=== PATIENT | female | born 1945 ===

== ENCOUNTER 2018-07-10 15:44 | Inpatient (IN) | payer MEDICARE ==
[~2018-07-10] VITALS: Ht 152.4 cm; Wt 70.3 kg
[2018-07-10] MEDS ORDERED: DOCUSATE SODIUM 283 MG/5 ML MINI-ENEMA PR PRN (16:45)
[2018-07-10] MEDS ORDERED: ACETAMINOPHEN 325 MG TABLET PO PRN ×2 (16:45→19:45)
[2018-07-10 19:36] VITALS: BP 150/90
[2018-07-10 20:51] VITALS: BP 144/58
[2018-07-10] MEDS: SENNA 187 MG TABLET PO SCH (20:54)
[2018-07-10] MEDS: DOCUSATE SODIUM 100 MG CAPSULE PO SCH (20:54)
[2018-07-10] MEDS: METOPROLOL TARTRATE 50 MG TABLET PO SCH (20:55)
[2018-07-11 00:11] VITALS: BP 150/53
[2018-07-11 02:12] LABS: APPEARANCE,URINE CLOUDY (CLEAR); GLUCOSE, URINE (UA) NEGATIVE (NEGATIVE); KETONES,URINE TRACE mg/dL (NEGATIVE); LEUKOCYTE ESTERASE ,URINE SMALL (NEGATIVE); NITRATE,URINE NEGATIVE (NEGATIVE); OCCULT BLOOD,URINE NEGATIVE (NEGATIVE); PROTEIN,URINE SEE CONFIRM (NEGATIVE)
[2018-07-11 02:13] LABS: BILIRUBIN,URINE PRELIM. POSITIVE (NEGATIVE)
[2018-07-11 02:20] LABS: BACTERIA,URINE Moderate /HPF (None Seen); RBC,URINE 0-2 /HPF (0-2); SQUAMOUS EPITHELIAL CELL,UR Many /LPF (None Seen)
[2018-07-11 02:21] LABS: SULFOSALICYLIC ACID,URINE 3+ (Negative)
[2018-07-11 06:43] LABS: BASOPHILS % (AUTO) 0.4 % (0.0-2.0); EOSINOPHILS % (AUTO) 2.6 % (1.0-6.0); HEMATOCRIT 28.9 % (36-46); HEMOGLOBIN 9.5 g/dL (12.0-16.0); LYMPHOCYTES # (AUTO) 1.3 K/uL (1.0-4.8); LYMPHOCYTES % (AUTO) 24.9 % (22.0-44.0); MEAN CORPUSCULAR HEMOGLOBIN 25.7 pg (26.0-34.0); MEAN CORPUSCULAR HGB CONC 32.7 G/dL (31.0-37.0); MEAN CORPUSCULAR VOLUME 79 fL (80-100); MONOCYTES # (AUTO) 0.4 K/uL (0.1-1.0); MONOCYTES % (AUTO) 7.5 % (2.0-9.0); NEUTROPHILS # (AUTO) 3.4 K/uL (1.8-7.7); NEUTROPHILS % (AUTO) 64.6 % (40.0-70.0); PLATELET COUNT (AUTO) 163 K/uL (150-450); RED BLOOD CELL COUNT(AUTO) 3.68 MIL/uL (4.00-5.20); RED CELL DISTRIBUTION WIDTH 20.4 % (11.5-14.5)
[2018-07-11 07:00] LABS: ALBUMIN 2.5 g/dL (3.4-5.0); BILIRUBIN,TOTAL 0.4 mg/dL (0.1-1.0); CALCIUM, TOTAL 8.6 mg/dL (8.8-10.5); CREATININE 1.49 mg/dL (0.60-1.30); POTASSIUM 3.8 mmol/L (3.5-5.1); TOTAL PROTEIN, SERUM 6.8 g/dL (6.4-8.2)
[2018-07-11 07:23] VITALS: BP 136/54
[2018-07-11] MEDS: METOPROLOL TARTRATE 50 MG TABLET PO SCH ×2 (08:42→20:13)
[2018-07-11] MEDS: ASPIRIN 81 MG CHEWABLE TABLET PO SCH (08:42)
[2018-07-11] MEDS: AmLODIPine BESYLATE 10 MG TABLET PO SCH (08:42)
[2018-07-11] MEDS: HYDROCHLOROTHIAZIDE 25 MG TABLET PO SCH (08:42)
[2018-07-11] MEDS: CHOLECALCIFEROL (VIT D3) 5,000 UNITS CAPSULE PO SCH (08:42)
[2018-07-11] MEDS: CLOPIDOGREL BISULFATE 75 MG TABLET PO SCH (08:42)
[2018-07-11] MEDS: DOCUSATE SODIUM 100 MG CAPSULE PO SCH ×2 (08:48→20:14)
[2018-07-11] MEDS ORDERED: ATORVASTATIN CALCIUM 40 MG TABLET PO SCH ×2 (09:00→21:00)
[2018-07-11 15:35] VITALS: BP 100/63
[2018-07-11 20:11] VITALS: BP 141/67
[2018-07-11] MEDS: SULFAMETHOX/TRIMETH DS 800-160 MG/TABLET PO SCH (20:13)
[2018-07-11] MEDS: SENNA 187 MG TABLET PO SCH (20:14)
[2018-07-12 02:00] VITALS: BP 134/58
[2018-07-12] MEDS ORDERED: PANTOPRAZOLE SODIUM 40 MG DR TABLET PO SCH (07:00)
[2018-07-12] MEDS: DOCUSATE SODIUM 100 MG CAPSULE PO SCH (09:00)
[2018-07-12 09:14] VITALS: BP 138/59
[2018-07-12] MEDS: SULFAMETHOX/TRIMETH DS 800-160 MG/TABLET PO SCH ×2 (09:18→20:21)
[2018-07-12] MEDS: HYDROCHLOROTHIAZIDE 25 MG TABLET PO SCH (09:18)
[2018-07-12] MEDS: AmLODIPine BESYLATE 10 MG TABLET PO SCH (09:18)
[2018-07-12] MEDS: CLOPIDOGREL BISULFATE 75 MG TABLET PO SCH (09:18)
[2018-07-12] MEDS: METOPROLOL TARTRATE 50 MG TABLET PO SCH ×2 (09:18→20:21)
[2018-07-12] MEDS: ASPIRIN 81 MG CHEWABLE TABLET PO SCH (09:19)
[2018-07-12] MEDS: CHOLECALCIFEROL (VIT D3) 5,000 UNITS CAPSULE PO SCH (09:28)
[2018-07-12] MEDS ORDERED: DOCUSATE SODIUM 100 MG CAPSULE PO PRN (11:30)
[2018-07-12] MEDS ORDERED: SENNA 187 MG TABLET PO PRN (11:30)
[2018-07-12 15:28] VITALS: BP 130/69
[2018-07-12] MEDS: ROSUVASTATIN CALCIUM 20 MG TABLET PO SCH (20:17)
[2018-07-12 20:20] VITALS: BP 138/53
[2018-07-13 00:02] VITALS: BP 128/57
[2018-07-13 07:27] VITALS: BP 131/64
[2018-07-13] MEDS: METOPROLOL TARTRATE 50 MG TABLET PO SCH ×2 (08:17→20:52)
[2018-07-13] MEDS: AmLODIPine BESYLATE 10 MG TABLET PO SCH (08:17)
[2018-07-13] MEDS: CHOLECALCIFEROL (VIT D3) 5,000 UNITS CAPSULE PO SCH (08:17)
[2018-07-13] MEDS: SULFAMETHOX/TRIMETH DS 800-160 MG/TABLET PO SCH ×2 (08:18→20:42)
[2018-07-13] MEDS: HYDROCHLOROTHIAZIDE 25 MG TABLET PO SCH (08:18)
[2018-07-13] MEDS: CLOPIDOGREL BISULFATE 75 MG TABLET PO SCH (08:18)
[2018-07-13] MEDS: ASPIRIN 81 MG CHEWABLE TABLET PO SCH (08:18)
[2018-07-13 15:16] VITALS: BP 145/58
[2018-07-13] MEDS: ROSUVASTATIN CALCIUM 20 MG TABLET PO SCH (20:52)
[2018-07-13 23:23] VITALS: BP 146/88
[2018-07-14 07:27] VITALS: BP 121/45
[2018-07-14] MEDS: ASPIRIN 81 MG CHEWABLE TABLET PO SCH (08:21)
[2018-07-14] MEDS: CLOPIDOGREL BISULFATE 75 MG TABLET PO SCH (08:21)
[2018-07-14] MEDS: CHOLECALCIFEROL (VIT D3) 5,000 UNITS CAPSULE PO SCH (08:21)
[2018-07-14] MEDS: AmLODIPine BESYLATE 10 MG TABLET PO SCH (08:21)
[2018-07-14] MEDS: SULFAMETHOX/TRIMETH DS 800-160 MG/TABLET PO SCH ×2 (08:21→20:40)
[2018-07-14] MEDS: METOPROLOL TARTRATE 50 MG TABLET PO SCH ×2 (08:22→20:41)
[2018-07-14] MEDS: HYDROCHLOROTHIAZIDE 25 MG TABLET PO SCH (08:22)
[2018-07-14 15:08] VITALS: BP 125/46
[2018-07-14 20:39] VITALS: BP 146/56
[2018-07-14] MEDS: ROSUVASTATIN CALCIUM 20 MG TABLET PO SCH (20:41)
[2018-07-15 01:13] VITALS: BP 124/58
[2018-07-15] MEDS ORDERED: CLOP75 PO (07:03)
[2018-07-15] MEDS ORDERED: HYDR25TA PO (07:03)
[2018-07-15] MEDS ORDERED: ROSU20 PO (07:03)
[2018-07-15] MEDS ORDERED: ASPI-1182 PO (07:03)
[2018-07-15] MEDS ORDERED: CHOL50004 PO (07:03)
[2018-07-15] MEDS ORDERED: AMLO-512 PO (07:03)
[2018-07-15] MEDS ORDERED: METO50 PO (07:03)
[2018-07-15 07:35] VITALS: BP 136/56
[2018-07-15] MEDS: ASPIRIN 81 MG CHEWABLE TABLET PO SCH (08:09)
[2018-07-15] MEDS: SULFAMETHOX/TRIMETH DS 800-160 MG/TABLET PO SCH ×2 (08:09→21:08)
[2018-07-15] MEDS: CHOLECALCIFEROL (VIT D3) 5,000 UNITS CAPSULE PO SCH (08:09)
[2018-07-15] MEDS: CLOPIDOGREL BISULFATE 75 MG TABLET PO SCH (08:09)
[2018-07-15] MEDS: HYDROCHLOROTHIAZIDE 25 MG TABLET PO SCH (08:10)
[2018-07-15] MEDS: AmLODIPine BESYLATE 10 MG TABLET PO SCH (08:10)
[2018-07-15] MEDS: METOPROLOL TARTRATE 50 MG TABLET PO SCH ×2 (08:10→21:00)
[2018-07-15 15:22] VITALS: BP 139/63
[2018-07-15] MEDS: ROSUVASTATIN CALCIUM 20 MG TABLET PO SCH (21:00)
[2018-07-15 21:06] VITALS: BP 145/57
[2018-07-15 23:48] VITALS: BP 132/59
[2018-07-16 07:50] VITALS: BP 139/57
[2018-07-16] MEDS: SULFAMETHOX/TRIMETH DS 800-160 MG/TABLET PO SCH ×2 (09:11→21:18)
[2018-07-16] MEDS: METOPROLOL TARTRATE 50 MG TABLET PO SCH ×2 (09:11→21:00)
[2018-07-16] MEDS: AmLODIPine BESYLATE 10 MG TABLET PO SCH (09:11)
[2018-07-16] MEDS: ASPIRIN 81 MG CHEWABLE TABLET PO SCH (09:11)
[2018-07-16] MEDS: CLOPIDOGREL BISULFATE 75 MG TABLET PO SCH (09:12)
[2018-07-16] MEDS: HYDROCHLOROTHIAZIDE 25 MG TABLET PO SCH (09:12)
[2018-07-16] MEDS: CHOLECALCIFEROL (VIT D3) 5,000 UNITS CAPSULE PO SCH (09:12)
[2018-07-16 15:30] VITALS: BP 129/51
[2018-07-16 20:44] VITALS: BP_SYST 15; BP_SYST 150; BP_DIAS 50
[2018-07-16] MEDS: ROSUVASTATIN CALCIUM 20 MG TABLET PO SCH (21:00)
[2018-07-16 21:14] VITALS: BP 150/55
[2018-07-17] VITALS: BP 128/47
[2018-07-17 05:07] VITALS: BP 137/54
[2018-07-17 07:30] VITALS: BP 130/55
[2018-07-17] MEDS: METOPROLOL TARTRATE 50 MG TABLET PO SCH ×2 (08:51→20:39)
[2018-07-17] MEDS: ASPIRIN 81 MG CHEWABLE TABLET PO SCH (08:51)
[2018-07-17] MEDS: CLOPIDOGREL BISULFATE 75 MG TABLET PO SCH (08:51)
[2018-07-17] MEDS: AmLODIPine BESYLATE 10 MG TABLET PO SCH (08:51)
[2018-07-17] MEDS: HYDROCHLOROTHIAZIDE 25 MG TABLET PO SCH (08:51)
[2018-07-17] MEDS: SULFAMETHOX/TRIMETH DS 800-160 MG/TABLET PO SCH ×2 (08:51→20:33)
[2018-07-17] MEDS: CHOLECALCIFEROL (VIT D3) 5,000 UNITS CAPSULE PO SCH (08:51)
[2018-07-17 15:45] VITALS: BP 140/53
[2018-07-17 20:31] VITALS: BP 136/53
[2018-07-17] MEDS: ROSUVASTATIN CALCIUM 20 MG TABLET PO SCH (20:39)
[2018-07-18 02:00] VITALS: BP 139/60
[2018-07-18 07:20] VITALS: BP 143/73
[2018-07-18] MEDS: HYDROCHLOROTHIAZIDE 25 MG TABLET PO SCH (08:44)
[2018-07-18] MEDS: AmLODIPine BESYLATE 10 MG TABLET PO SCH (08:45)
[2018-07-18] MEDS: CHOLECALCIFEROL (VIT D3) 5,000 UNITS CAPSULE PO SCH (08:45)
[2018-07-18] MEDS: CLOPIDOGREL BISULFATE 75 MG TABLET PO SCH (08:45)
[2018-07-18] MEDS: METOPROLOL TARTRATE 50 MG TABLET PO SCH ×2 (08:45→20:46)
[2018-07-18] MEDS: SULFAMETHOX/TRIMETH DS 800-160 MG/TABLET PO SCH (08:46)
[2018-07-18] MEDS: ASPIRIN 81 MG CHEWABLE TABLET PO SCH (08:46)
[2018-07-18 15:45] VITALS: BP 114/54
[2018-07-18 20:45] VITALS: BP 133/56
[2018-07-18] MEDS: ROSUVASTATIN CALCIUM 20 MG TABLET PO SCH (20:46)
[2018-07-19 00:24] VITALS: BP 117/47
[2018-07-19 08:30] VITALS: BP 130/48
[2018-07-19] MEDS: HYDROCHLOROTHIAZIDE 25 MG TABLET PO SCH (08:40)
[2018-07-19] MEDS: AmLODIPine BESYLATE 10 MG TABLET PO SCH (08:40)
[2018-07-19] MEDS: CHOLECALCIFEROL (VIT D3) 5,000 UNITS CAPSULE PO SCH (08:40)
[2018-07-19] MEDS: METOPROLOL TARTRATE 50 MG TABLET PO SCH ×2 (08:40→20:45)
[2018-07-19] MEDS: CLOPIDOGREL BISULFATE 75 MG TABLET PO SCH (08:40)
[2018-07-19] MEDS: ASPIRIN 81 MG CHEWABLE TABLET PO SCH (08:41)
[2018-07-19 15:31] VITALS: BP 130/57
[2018-07-19] MEDS: ROSUVASTATIN CALCIUM 20 MG TABLET PO SCH (20:45)
[2018-07-20 00:47] VITALS: BP 132/56
[2018-07-20 07:10] VITALS: BP 131/52
[2018-07-20] MEDS: ASPIRIN 81 MG CHEWABLE TABLET PO SCH (08:30)
[2018-07-20] MEDS: AmLODIPine BESYLATE 10 MG TABLET PO SCH (08:30)
[2018-07-20] MEDS: METOPROLOL TARTRATE 50 MG TABLET PO SCH ×2 (08:30→20:45)
[2018-07-20] MEDS: CHOLECALCIFEROL (VIT D3) 5,000 UNITS CAPSULE PO SCH (08:30)
[2018-07-20] MEDS: CLOPIDOGREL BISULFATE 75 MG TABLET PO SCH (08:30)
[2018-07-20] MEDS: HYDROCHLOROTHIAZIDE 25 MG TABLET PO SCH (08:30)
[2018-07-20 08:34] VITALS: BP 144/52
[2018-07-20 15:15] VITALS: BP 140/62
[2018-07-20 20:42] VITALS: BP 141/57
[2018-07-20] MEDS: ROSUVASTATIN CALCIUM 20 MG TABLET PO SCH (20:46)
[2018-07-20 23:23] VITALS: BP 126/53
[2018-07-21 07:45] VITALS: BP 124/50
[2018-07-21] MEDS: HYDROCHLOROTHIAZIDE 25 MG TABLET PO SCH (08:49)
[2018-07-21] MEDS: METOPROLOL TARTRATE 50 MG TABLET PO SCH ×2 (08:49→20:46)
[2018-07-21] MEDS: CHOLECALCIFEROL (VIT D3) 5,000 UNITS CAPSULE PO SCH (08:49)
[2018-07-21] MEDS: ASPIRIN 81 MG CHEWABLE TABLET PO SCH (08:49)
[2018-07-21] MEDS: AmLODIPine BESYLATE 10 MG TABLET PO SCH (08:49)
[2018-07-21] MEDS: CLOPIDOGREL BISULFATE 75 MG TABLET PO SCH (08:49)
[2018-07-21 16:08] VITALS: BP 152/56
[2018-07-21] MEDS: ROSUVASTATIN CALCIUM 20 MG TABLET PO SCH (20:43)
[2018-07-21 20:45] VITALS: BP 143/79
[2018-07-22 05:00] VITALS: BP 132/62
[2018-07-22 07:30] VITALS: BP 129/57
[2018-07-22] MEDS: CHOLECALCIFEROL (VIT D3) 5,000 UNITS CAPSULE PO SCH (08:23)
[2018-07-22] MEDS: HYDROCHLOROTHIAZIDE 25 MG TABLET PO SCH (08:23)
[2018-07-22] MEDS: CLOPIDOGREL BISULFATE 75 MG TABLET PO SCH (08:23)
[2018-07-22] MEDS: AmLODIPine BESYLATE 10 MG TABLET PO SCH (08:24)
[2018-07-22] MEDS: METOPROLOL TARTRATE 50 MG TABLET PO SCH ×2 (08:24→21:00)
[2018-07-22] MEDS: ASPIRIN 81 MG CHEWABLE TABLET PO SCH (08:24)
[2018-07-22] MEDS: ROSUVASTATIN CALCIUM 20 MG TABLET PO SCH (21:00)
[2018-07-23] MEDS: CLOPIDOGREL BISULFATE 75 MG TABLET PO SCH (09:00)
[2018-07-23] MEDS: ASPIRIN 81 MG CHEWABLE TABLET PO SCH (09:00)
[2018-07-23] MEDS: METOPROLOL TARTRATE 50 MG TABLET PO SCH ×3 (09:00→21:20)
[2018-07-23] MEDS: CHOLECALCIFEROL (VIT D3) 5,000 UNITS CAPSULE PO SCH (09:00)
[2018-07-23] MEDS: AmLODIPine BESYLATE 10 MG TABLET PO SCH (09:00)
[2018-07-23] MEDS: HYDROCHLOROTHIAZIDE 25 MG TABLET PO SCH (09:00)
[2018-07-23 19:54] VITALS: BP 127/68
[2018-07-23] MEDS: ROSUVASTATIN CALCIUM 20 MG TABLET PO SCH (20:55)
[2018-07-24 00:45] VITALS: BP 140/60
[2018-07-24 07:44] VITALS: BP 114/62
[2018-07-24] MEDS: AmLODIPine BESYLATE 10 MG TABLET PO SCH (08:31)
[2018-07-24] MEDS: CLOPIDOGREL BISULFATE 75 MG TABLET PO SCH (08:31)
[2018-07-24] MEDS: ASPIRIN 81 MG CHEWABLE TABLET PO SCH (08:31)
[2018-07-24] MEDS: METOPROLOL TARTRATE 50 MG TABLET PO SCH ×2 (08:31→20:40)
[2018-07-24] MEDS: CHOLECALCIFEROL (VIT D3) 5,000 UNITS CAPSULE PO SCH (08:34)
[2018-07-24] MEDS: HYDROCHLOROTHIAZIDE 25 MG TABLET PO SCH (08:34)
[2018-07-24 15:10] VITALS: BP 128/57
[2018-07-24 20:38] VITALS: BP 128/62
[2018-07-24] MEDS: ROSUVASTATIN CALCIUM 20 MG TABLET PO SCH (21:00)
[2018-07-24 21:12] LABS: APPEARANCE,URINE CLOUDY (CLEAR); BILIRUBIN,URINE NEGATIVE (NEGATIVE); GLUCOSE, URINE (UA) NEGATIVE (NEGATIVE); KETONES,URINE TRACE mg/dL (NEGATIVE); LEUKOCYTE ESTERASE ,URINE SMALL (NEGATIVE); NITRATE,URINE NEGATIVE (NEGATIVE); OCCULT BLOOD,URINE NEGATIVE (NEGATIVE); PROTEIN,URINE SEE CONFIRM (NEGATIVE); UROBILINOGEN,URINE 0.2 mg/dL (<=1.0)
[2018-07-24 21:31] LABS: RBC,URINE 0-2 /HPF (0-2); SULFOSALICYLIC ACID,URINE 1+ (Negative)
[2018-07-24 21:32] LABS: BACTERIA,URINE Few /HPF (None Seen); SQUAMOUS EPITHELIAL CELL,UR Few /LPF (None Seen)
[2018-07-25 01:56] VITALS: BP 119/52
[2018-07-25 07:35] VITALS: BP 139/54
[2018-07-25] MEDS: CHOLECALCIFEROL (VIT D3) 5,000 UNITS CAPSULE PO SCH (08:05)
[2018-07-25] MEDS: METOPROLOL TARTRATE 50 MG TABLET PO SCH ×2 (08:06→20:19)
[2018-07-25] MEDS: AmLODIPine BESYLATE 10 MG TABLET PO SCH (08:07)
[2018-07-25] MEDS: ASPIRIN 81 MG CHEWABLE TABLET PO SCH (08:08)
[2018-07-25] MEDS: HYDROCHLOROTHIAZIDE 25 MG TABLET PO SCH (08:08)
[2018-07-25] MEDS: CLOPIDOGREL BISULFATE 75 MG TABLET PO SCH (08:08)
[2018-07-25 15:55] VITALS: BP 124/61
[2018-07-25 20:07] VITALS: BP 142/63
[2018-07-25] MEDS: ROSUVASTATIN CALCIUM 20 MG TABLET PO SCH (20:19)
[2018-07-26 05:34] VITALS: BP 114/48
[2018-07-26] MEDS: CLOPIDOGREL BISULFATE 75 MG TABLET PO SCH (08:11)
[2018-07-26] MEDS: ASPIRIN 81 MG CHEWABLE TABLET PO SCH (08:11)
[2018-07-26] MEDS: HYDROCHLOROTHIAZIDE 25 MG TABLET PO SCH (08:11)
[2018-07-26] MEDS: AmLODIPine BESYLATE 10 MG TABLET PO SCH (08:11)
[2018-07-26] MEDS: METOPROLOL TARTRATE 50 MG TABLET PO SCH ×2 (08:11→20:01)
[2018-07-26] MEDS: CHOLECALCIFEROL (VIT D3) 5,000 UNITS CAPSULE PO SCH (08:11)
[2018-07-26 08:16] VITALS: BP 140/82
[2018-07-26 15:50] VITALS: BP 135/57
[2018-07-26 20:02] VITALS: BP 129/67
[2018-07-26] MEDS: ROSUVASTATIN CALCIUM 20 MG TABLET PO SCH (20:02)
[2018-07-26 23:56] VITALS: BP 115/48
[2018-07-27 07:51] VITALS: BP 130/54
[2018-07-27] MEDS: CLOPIDOGREL BISULFATE 75 MG TABLET PO SCH (08:03)
[2018-07-27] MEDS: METOPROLOL TARTRATE 50 MG TABLET PO SCH ×2 (08:03→20:08)
[2018-07-27] MEDS: CHOLECALCIFEROL (VIT D3) 5,000 UNITS CAPSULE PO SCH (08:03)
[2018-07-27] MEDS: HYDROCHLOROTHIAZIDE 25 MG TABLET PO SCH (08:04)
[2018-07-27] MEDS: AmLODIPine BESYLATE 10 MG TABLET PO SCH (08:04)
[2018-07-27] MEDS: ASPIRIN 81 MG CHEWABLE TABLET PO SCH (08:04)
[2018-07-27 16:12] VITALS: BP 116/57
[2018-07-27 20:06] VITALS: BP 132/50
[2018-07-27] MEDS: ROSUVASTATIN CALCIUM 20 MG TABLET PO SCH (20:09)
[2018-07-28 00:18] VITALS: BP 145/56
[2018-07-28 07:30] VITALS: BP 136/57
[2018-07-28] MEDS: HYDROCHLOROTHIAZIDE 25 MG TABLET PO SCH (08:33)
[2018-07-28] MEDS: CHOLECALCIFEROL (VIT D3) 5,000 UNITS CAPSULE PO SCH (08:33)
[2018-07-28] MEDS: AmLODIPine BESYLATE 10 MG TABLET PO SCH (08:33)
[2018-07-28] MEDS: METOPROLOL TARTRATE 50 MG TABLET PO SCH (08:33)
[2018-07-28] MEDS: ASPIRIN 81 MG CHEWABLE TABLET PO SCH (08:33)
[2018-07-28] MEDS: CLOPIDOGREL BISULFATE 75 MG TABLET PO SCH (08:33)
[2018-07-28 15:00] VITALS: BP 156/71
== END 2018-07-28 17:00 | disposition home health service (06) | DRG 64 ==
LOC: 2WR 16:05
PROVIDERS: ADMIT Physical Medicine & Rehabilitation; ATTEND Physical Medicine & Rehabilitation
DX: I63.9 Cerebral infarction, unspecified (principal); I22.9 Subsequent ST elevation (STEMI) myocardial infarction of unspecified site; N39.0 Urinary tract infection, site not specified; G81.91 Hemiplegia, unspecified affecting right dominant side; G81.94 Hemiplegia, unspecified affecting left nondominant side; R47.1 Dysarthria and anarthria; R47.01 Aphasia; E11.51 Type 2 diabetes mellitus with diabetic peripheral angiopathy without gangrene; E78.5 Hyperlipidemia, unspecified; R13.10 Dysphagia, unspecified; E87.5 Hyperkalemia; I10 Essential (primary) hypertension; I25.10 Atherosclerotic heart disease of native coronary artery without angina pectoris; D50.9 Iron deficiency anemia, unspecified; Z96.1 Presence of intraocular lens; Z90.49 Acquired absence of other specified parts of digestive tract; I25.2 Old myocardial infarction; Z95.5 Presence of coronary angioplasty implant and graft; Z88.6 Allergy status to analgesic agent; Z91.19 Patient's noncompliance with other medical treatment and regimen; Z98.42 Cataract extraction status, left eye; Z98.41 Cataract extraction status, right eye; Z82.49 Family history of ischemic heart disease and other diseases of the circulatory system; Z83.3 Family history of diabetes mellitus; Z98.891 History of uterine scar from previous surgery
CPT/HCPCS: 83036; 87081; 87086; 92507; 92508; 92523; 97110; 97112; 97116; 97150; 97162; 97167; 97530; 97535; 99366